=== PATIENT | female | born 1940 | race Caucasian/White ===

== ENCOUNTER 2017-08-09 07:14 | Day surgery (SDC) | payer MEDICAID, OTHER ==
[~2017-08-09] VITALS: Ht 147.3 cm; Wt 61.8 kg
[2017-08-09] MEDS ORDERED: LIDOCAINE HCL/PF 1% 2 ML VIAL INJ ONE (07:15)
[2017-08-09] MEDS ORDERED: TETRACAINE HCL VISCOUS 0.5% 0.6 ML OPHTHALMIC SOLUTION OS ONE (07:15)
[2017-08-09] MEDS ORDERED: POVIDONE-IODINE 10% 15 ML SOLUTION UD TP ONE (07:15)
[2017-08-09] MEDS ORDERED: NEOMYCIN/POLYMYXIN B/DEXAMETH 3.5 GM OPHTHALMIC OINTMENT OS ONE (07:15)
[2017-08-09] MEDS ORDERED: HYALURONATE SOD/CHONDROITIN SOD 0.5 ML VIAL IO ONE (07:15)
[2017-08-09] MEDS ORDERED: HYALURONATE SODIUM 12 MG/ML 0.8 ML SYRINGE IO ONE (07:15)
[2017-08-09] MEDS ORDERED: VANCOMYCIN HCL 500 MG/VIAL TP ONE (07:15)
[2017-08-09] MEDS ORDERED: DICLOFENAC SODIUM 0.1% 2.5 ML OPHTHALMIC SOLUTION ONE (07:41)
[2017-08-09] MEDS ORDERED: MOXIFLOXACIN HCL 0.5% 3 ML OPHTHALMIC SOLUTION ONE (07:41)
[2017-08-09] MEDS ORDERED: RINGERS SOLUTION,LACTATED 500 ML IV ONE ×2 (07:41→08:00)
[2017-08-09] MEDS ORDERED: TROPICAMIDE 1% 2 ML OPHTHALMIC SOLUTION ONE (07:41)
[2017-08-09] MEDS ORDERED: PHENYLEPHRINE HCL 2.5% 2 ML OPHTHALMIC SOLUTION ONE (07:42)
[2017-08-09] MEDS ORDERED: DICLOFENAC SODIUM 0.1% 2.5 ML OPHTHALMIC SOLUTION OS ONE (08:00)
[2017-08-09] MEDS ORDERED: MOXIFLOXACIN HCL 0.5% 3 ML OPHTHALMIC SOLUTION OS ONE (08:00)
[2017-08-09] MEDS: TROPICAMIDE 1% 2 ML OPHTHALMIC SOLUTION OS SCH ×2 (09:00→09:06)
[2017-08-09] MEDS: PHENYLEPHRINE HCL 2.5% 2 ML OPHTHALMIC SOLUTION OS SCH ×2 (09:00→09:05)
[2017-08-09 09:12] LABS: GLUCOSE,POINT OF CARE 129 MG/DL (70-110)
[2017-08-09] MEDS ORDERED: FentaNYL CITRATE-PF 100 MCG/2 ML VIAL IVP ONE (12:00)
[2017-08-09] MEDS ORDERED: MIDAZOLAM HCL 2 MG/2 ML VIAL IVP ONE (12:00)
[2017-10-02] MEDS ORDERED: LOSA25TA21 PO (15:28)
[2017-10-02] MEDS ORDERED: ACET-66 PO (15:28)
[2017-10-02] MEDS ORDERED: SENN-144 PO (15:28)
[2017-10-02] MEDS ORDERED: LORA10TA7 PO (15:28)
[2017-10-02] MEDS ORDERED: VITAD50000 PO (15:28)
[2017-10-02] MEDS ORDERED: PANT40TA25 PO (15:28)
[2017-10-02] MEDS ORDERED: METF500T4 PO (15:28)
[2017-10-02] MEDS ORDERED: FURO40 PO (15:28)
[2017-10-02] MEDS ORDERED: GABA-531 PO ×2 (15:28)
[2017-10-02] MEDS ORDERED: METO-558 PO (15:28)
[2017-10-02] MEDS ORDERED: OLOP2.5D5 OU (15:28)
[2017-10-02] MEDS ORDERED: [UNRECOGNIZED DRUG - OTHER] OD (15:28)
[2017-10-02] MEDS ORDERED: FOLI-97 PO (15:28)
[2017-10-02] MEDS ORDERED: METO25XL PO (15:28)
[2017-10-02] MEDS ORDERED: PREDAOS OD (15:28)
[2017-10-02] MEDS ORDERED: RANI150T7 PO (15:28)
[2017-10-02] MEDS ORDERED: GUAI120S43 PO (15:28)
[2017-10-02] MEDS ORDERED: CILO2.5OS OD (15:28)
[2017-10-02] MEDS ORDERED: APIX5TAB PO (15:28)
[2017-10-02] MEDS ORDERED: POTA10TA14 PO (15:28)
[2017-10-02] MEDS ORDERED: DIGO125T PO (15:28)
== END 2017-08-09 12:15 | disposition home or self-care (01) ==
LOC: SURGERY 07:14
PROVIDERS: ATTEND Specialist
DX: E11.36 Type 2 diabetes mellitus with diabetic cataract (principal); H25.012 Cortical age-related cataract, left eye; I10 Essential (primary) hypertension; Z98.890 Other specified postprocedural states; M19.90 Unspecified osteoarthritis, unspecified site; Z88.0 Allergy status to penicillin; E66.3 Overweight; M06.9 Rheumatoid arthritis, unspecified; Z88.6 Allergy status to analgesic agent; Z68.28 Body mass index [BMI] 28.0-28.9, adult
CPT/HCPCS: 66984; 82962; 93005; C1780; J2250; J3010; J7120; J3370; J3490

== ENCOUNTER 2017-10-04 08:10 | Day surgery (SDC) | payer OTHER ==
[~2017-10-04] VITALS: Ht 147.3 cm; Wt 59.5 kg
[~2017-10-04 08:10] MED LIST: ACET-66 PO; APIX5TAB PO; CILO2.5OS OD; DICL2.5D8 OD; DICLOFENAC SODIUM 0.1% 2.5 ML OPHTHALMIC SOLUTION OD ONE; DIGO-44 PO; FOLI-97 PO; FURO40 PO; GABA-531 PO; GUAI120S43 PO; LORA10TA7 PO; LOSA25TA21 PO; METF500T4 PO; METO-558 PO; METO25XL PO; MOXIFLOXACIN HCL 0.5% 3 ML OPHTHALMIC SOLUTION OD ONE; MOXIFLOXACIN HCL 0.5% 3 ML OPHTHALMIC SOLUTION ONE; OLOP2.5D5 OU; PANT40TA25 PO; PHENYLEPHRINE HCL 2.5% 2 ML OPHTHALMIC SOLUTION ONE; POTA10TA14 PO; PREDAOS OD; RANI150T7 PO; RINGERS SOLUTION,LACTATED 500 ML IV ONE; SENN-144 PO; TROPICAMIDE 1% 2 ML OPHTHALMIC SOLUTION ONE; VITAD50000 PO
[2017-10-04] MEDS: TROPICAMIDE 1% 2 ML OPHTHALMIC SOLUTION OD SCH ×2 (09:27→09:32)
[2017-10-04] MEDS: PHENYLEPHRINE HCL 2.5% 2 ML OPHTHALMIC SOLUTION OD SCH ×2 (09:27→09:33)
[2017-10-04 09:33] LABS: GLUCOMETER DEV NAME(LOC) SDS 5; GLUCOSE,POINT OF CARE 138 MG/DL (70-110)
[2017-10-04] MEDS ORDERED: MIDAZOLAM HCL 2 MG/2 ML VIAL IVP ONE (12:00)
[2017-10-04] MEDS ORDERED: FentaNYL CITRATE-PF 100 MCG/2 ML VIAL IVP ONE (12:00)
== END 2017-10-04 11:30 | disposition home or self-care (01) ==
LOC: SURGERY 08:10
PROVIDERS: ATTEND Specialist
DX: E11.36 Type 2 diabetes mellitus with diabetic cataract (principal); H25.011 Cortical age-related cataract, right eye; I10 Essential (primary) hypertension; J45.909 Unspecified asthma, uncomplicated; M19.90 Unspecified osteoarthritis, unspecified site; I48.0 Paroxysmal atrial fibrillation; E78.5 Hyperlipidemia, unspecified; E55.9 Vitamin D deficiency, unspecified; E66.9 Obesity, unspecified; E03.9 Hypothyroidism, unspecified; Z98.890 Other specified postprocedural states; Z68.27 Body mass index [BMI] 27.0-27.9, adult; Z79.01 Long term (current) use of anticoagulants; Z79.84 Long term (current) use of oral hypoglycemic drugs; Z79.899 Other long term (current) drug therapy; Z88.6 Allergy status to analgesic agent; Z88.0 Allergy status to penicillin; Z88.1 Allergy status to other antibiotic agents; Z88.8 Allergy status to other drugs, medicaments and biological substances
CPT/HCPCS: 66984; 82962; C1780; J2250; J3010; J7120